=== PATIENT | male | born 1955 | race Two or more races ===

== ENCOUNTER 2021-12-31 15:01 | Outpatient (CLI) | payer OTHER | END 2021-12-31 15:15 | disposition home or self-care (01) | LOC: RAD 15:01 | PROVIDERS: ATTEND Orthopaedic Surgery | DX: M25.572 Pain in left ankle and joints of left foot (principal); M79.672 Pain in left foot ==

== ENCOUNTER 2022-05-19 13:30 | Outpatient (CLI) | payer OTHER | END 2022-05-19 13:38 | disposition home or self-care (01) | LOC: NUCLEAR 13:30 | PROVIDERS: ATTEND Orthopaedic Surgery | DX: M81.0 Age-related osteoporosis without current pathological fracture (principal) ==

== ENCOUNTER 2022-06-16 14:37 | Outpatient (CLI) | payer OTHER | END 2022-06-16 14:42 | disposition home or self-care (01) | LOC: RAD 14:37 | PROVIDERS: ATTEND Orthopaedic Surgery | DX: M25.572 Pain in left ankle and joints of left foot (principal) ==

== ENCOUNTER → 2022-07-22 07:30 | Outpatient (CLI) | payer OTHER | END | disposition home or self-care (01) | LOC: LAB 07:30 | PROVIDERS: ATTEND Orthopaedic Surgery | DX: M85.9 Disorder of bone density and structure, unspecified (principal); E83.42 Hypomagnesemia; E56.1 Deficiency of vitamin K ==

== ENCOUNTER 2023-03-26 13:55 | Outpatient (CLI) | payer OTHER | END 2023-03-26 14:32 | disposition home or self-care (01) | LOC: SONOGRAMA 13:55 | PROVIDERS: ATTEND Internal Medicine | DX: E03.2 Hypothyroidism due to medicaments and other exogenous substances (principal) ==